=== PATIENT | male | born 1955 | race Caucasian/White ===

== ENCOUNTER 2018-03-24 11:46 | Emergency (ER) | payer MEDICAID ==
[~2018-03-24] VITALS: Ht 165.1 cm; Wt 68.0 kg
[2018-03-24 11:49] VITALS: BP 164/95
--- NOTE | 2018-03-24 11:53 | NUR ---
PATIENT PRESENTS TO ED WITH PAIN AND WART LIKE GROWTHS ON LEFT THUMB AND INDEX FINGER. PT STATES PAIN FEELS LIKE BURNING AND ALSO FEELS LIKE SOMETHING IS INSIDE CONSTRICTING. DENIES N/V/D; OTHERWISE SKIN IS PINK/WARM/DRY; AAOX4 WITH EVEN AND STEADY GAIT; LUNGS CLEAR BL; HR EVEN AND REGULAR; PT DENIES ANY FEVER, CP, SOB, OR COUGH AT THIS TIME; PATIENT STATES PAIN OF 8/10 AT THIS TIME; VSS; PATIENT POSITIONED FOR COMFORT; HOB ELEVATED; BEDRAILS UP X1; BED DOWN. ER MD MADE AWARE OF PT STATUS.
--- NOTE | 2018-03-24 12:34 | NUR ---
Patient being evaluated by physician at bedside.
[2018-03-24 13:10] VITALS: BP 149/89
--- NOTE | 2018-03-24 13:10 | NUR ---
Patient discharged with v/s stable. Written and verbal after care instructions given and explained. Patient alert, oriented and verbalized understanding of instructions. Ambulatory with steady gait. All questions addressed prior to discharge. ID band removed. Patient advised to follow up with PMD. Rx of TRIAMCINOLONE, VALTREX, NORCO, PENICILLIN given. Patient educated on indication of medication including possible reaction and side effects. Opportunity to ask questions provided and answered.
== END 2018-03-24 13:10 | disposition home or self-care (01) ==
LOC: MED 11:46
DX: B00.9 Herpesviral infection, unspecified (principal); K04.7 Periapical abscess without sinus; E11.9 Type 2 diabetes mellitus without complications; I10 Essential (primary) hypertension; Z95.1 Presence of aortocoronary bypass graft
CPT/HCPCS: 99283

== ENCOUNTER 2018-04-08 09:59 | Emergency (ER) | payer MEDICAID ==
[~2018-04-08] VITALS: Ht 162.6 cm; Wt 68.0 kg
[2018-04-08 10:03] VITALS: BP 146/95
== END 2018-04-08 12:02 | disposition home or self-care (01) ==
LOC: MED 09:59
DX: L01.00 Impetigo, unspecified (principal); A49.02 Methicillin resistant Staphylococcus aureus infection, unspecified site; E11.9 Type 2 diabetes mellitus without complications; I10 Essential (primary) hypertension; Z95.1 Presence of aortocoronary bypass graft
CPT/HCPCS: 36415; 87070; 87102; 87205; 87252; 99284

== ENCOUNTER 2018-04-21 20:45 | Emergency (ER) | payer MEDICAID ==
[~2018-04-21] VITALS: Ht 165.1 cm; Wt 67.1 kg
[2018-04-21 20:55] VITALS: BP 146/90
--- NOTE | 2018-04-21 20:57 | NUR ---
TO BED #1 AMBULATORY, REPORT GIVEN TO DONG CALL
--- NOTE | 2018-04-21 21:10 | NUR ---
C/O GENERALIZED RASH STARTING TO RT FLANK YESTERDAY AND IS NOW GENERALIZED. RED PATCHES NOTED GENERALIZED TO BODY. NO RR DISTRESS NOTED.
[2018-04-21] MEDS ORDERED: FAMOTIDINE 20 MG TAB PO ONE (21:20)
[2018-04-21] MEDS ORDERED: methylPREDNISolone SS 125 MG in WATER STERILE 2 ML IM ONE (21:20)
[2018-04-21] MEDS ORDERED: diphenhydrAMINE 50 MG/ML VIAL IM ONE (21:20)
--- NOTE | 2018-04-21 21:45 | NUR ---
PT NO LONGER ITCHING, STATES " FEELS BETTER".
[2018-04-21 22:02] VITALS: BP 174/94
--- NOTE | 2018-04-21 22:04 | NUR ---
Patient discharged with v/s stable. Written and verbal after care instructions given and explained. Patient alert, oriented and verbalized understanding of instructions. Ambulatory with steady gait. All questions addressed prior to discharge. ID band removed. Patient advised to follow up with PMD. Rx of BENADRYL, PREDNISONE, PEPCID given. Patient educated on indication of medication including possible reaction and side effects. Opportunity to ask questions provided and answered.
== END 2018-04-21 22:04 | disposition home or self-care (01) ==
LOC: MED 20:45
DX: L50.9 Urticaria, unspecified (principal); E11.9 Type 2 diabetes mellitus without complications; I10 Essential (primary) hypertension
CPT/HCPCS: 96372; 99284; J1200; J2930

== ENCOUNTER 2018-05-12 18:52 | Emergency (ER) | payer MEDICAID ==
[~2018-05-12] VITALS: Ht 162.6 cm; Wt 68.0 kg
[2018-05-12 18:58] VITALS: BP 171/99
--- NOTE | 2018-05-12 19:02 | NUR ---
PT AMBULATES WITH STEADY GAIT TO BED 12
--- NOTE | 2018-05-12 19:17 | NUR ---
PATIENT PRESENTS TO ED WITH pt c/o of pain in the sciatic/back radiates to the left leg. aggrevated x 2 days due to lifting heavy bags. steady gait. chronic back pain for 8 years. DENIES N/V/D; SKIN IS PINK/WARM/DRY; AAOX4 WITH EVEN AND STEADY GAIT; LUNGS CLEAR BL; HR EVEN AND REGULAR; PT DENIES ANY FEVER, CP, SOB, OR COUGH AT THIS TIME; PATIENT STATES PAIN OF 10/10 AT THIS TIME; VSS; PATIENT POSITIONED FOR COMFORT; HOB ELEVATED; BEDRAILS UP X2; BED DOWN. ER MD MADE AWARE OF PT STATUS.
[2018-05-12] MEDS ORDERED: CYCLOBENZAPRINE 10 MG TAB PO ONE (19:45)
[2018-05-12] MEDS ORDERED: GABAPENTIN 300 MG CAP PO ONE (19:45)
[2018-05-12] MEDS ORDERED: GABAPENTIN 300 MG CAP ONE (20:08)
[2018-05-12 20:29] VITALS: BP 171/99
--- NOTE | 2018-05-12 20:29 | NUR ---
Patient discharged with v/s stable. Written and verbal after care instructions given and explained. Patient alert, oriented and verbalized understanding of instructions. Ambulatory with steady gait. All questions addressed prior to discharge. ID band removed. Patient advised to follow up with PMD. Rx of gabapentin and flexeril were given. Patient educated on indication of medication including possible reaction and side effects. Opportunity to ask questions provided and answered.
--- NOTE | 2018-05-12 20:29 | NUR ---
Note undone in EDM - 05/12/18 at 2125 by [email or web address] Patient discharged with v/s stable. Written and verbal after care instructions given and explained. Patient alert, oriented and verbalized understanding of instructions. Ambulatory with to car. All questions addressed prior to discharge. ID band removed. Patient advised to follow up with PMD. Rx of gabapentin and flexeril were given. Patient educated on indication of medication including possible reaction and side effects. Opportunity to ask questions provided and answered.
== END 2018-05-12 20:29 | disposition home or self-care (01) ==
LOC: MED 18:52
DX: M54.42 Lumbago with sciatica, left side (principal); M54.41 Lumbago with sciatica, right side; I25.10 Atherosclerotic heart disease of native coronary artery without angina pectoris; E11.9 Type 2 diabetes mellitus without complications; I10 Essential (primary) hypertension
CPT/HCPCS: 99283

== ENCOUNTER 2019-06-22 18:58 | Emergency (ER) | payer MEDICAID ==
[~2019-06-22] VITALS: Ht 165.1 cm; Wt 70.5 kg
[2019-06-22 19:15] VITALS: BP 160/85
--- NOTE | 2019-06-22 19:18 | NUR ---
TO LOBBY A/W BED AND XRAY AMBULATORY
--- NOTE | 2019-06-22 19:42 | NUR ---
PT AMBULATED TO BED #11
--- NOTE | 2019-06-22 20:03 | NUR ---
Patient transferred to bed 1 for further care. RN re-evaluating patient at bedside.
[2019-06-22] MEDS ORDERED: DEXAMETHASONE 10 MG/ML VIAL IM ONE (20:10)
--- NOTE | 2019-06-22 20:10 | NUR ---
PT CAME TO ER C/O OF PRODUCTIVE COUGH X 3 WEEKS. NO FEVER OR CHILLS. NO N/V/D. PT IS A CHRONIC SMOKER FOR OVER 50 YEARS. MED HX: VIRAL MENINGITIS, [place] 2010, TRIPLE BYPASS 2011, HIGH CHOLESTEROL AND HTN. SAFETY MEASURES IN PLACE. WAITING FOR ERMD TO EVALUATE PT.
--- NOTE | 2019-06-22 20:41 | NUR ---
Patient discharged with v/s stable. Written and verbal after care instructions given and explained. PT EDUCATED TO REST AND DRINK PLENTY OF FLUIDS. Patient alert, oriented and verbalized understanding of instructions. Ambulatory with steady gait. All questions addressed prior to discharge. ID band removed. Patient advised to follow up with PMD. Rx of PREDNISONE, TESSALON PERLES, AND ALBUTEROL WAS given. Patient educated on indication of medication including possible reaction and side effects. Opportunity to ask questions provided and answered.
[2019-06-22 20:42] VITALS: BP 160/85
== END 2019-06-22 20:41 | disposition home or self-care (01) ==
LOC: MED 18:58
DX: J40 Bronchitis, not specified as acute or chronic (principal); E11.9 Type 2 diabetes mellitus without complications; I10 Essential (primary) hypertension; F17.210 Nicotine dependence, cigarettes, uncomplicated; Z98.890 Other specified postprocedural states; Z71.6 Tobacco abuse counseling
CPT/HCPCS: 71045; 96372; 99283; J1100; Q0092

== ENCOUNTER 2019-11-11 12:41 | Emergency (ER) | payer MEDICAID ==
[~2019-11-11] VITALS: Ht 165.1 cm; Wt 72.6 kg
[2019-11-11 13:08] VITALS: BP 142/82
--- NOTE | 2019-11-11 13:14 | NUR ---
INFLUENZA SWAB COLLECTED
--- NOTE | 2019-11-11 13:19 | NUR ---
SWAB SENT TO LAB.
--- NOTE | 2019-11-11 13:23 | NUR ---
PT AMBULATED TO BED 11
--- NOTE | 2019-11-11 13:47 | NUR ---
64 YEAR OLD MALE COMPLAINS OF HAVING COUGH, HEADACHE, AND CHILLS X 3 DAYS. PATIENT STATES HE HAS A 9/10 HEADACHE THAT FEELS LIKE NEEDLES. PATIENT STATES HE HAS HAD PRODUCTIVE COUGH WITH GREEN SPUTUM. LUNGS CTABL, BREATHING EVEN AND UNLABORED. PATIENT TEMPERATURE 100.7. NEGATIVE KERNIG AND BRUDZINSKI SIGNS. PATIENT ALERT AND ORIENTED, SKIN WARM AND DRY. BED IN LOWEST POSITION, LOCKED, BED RAIL UPX1. KNOWN MEDICAL HISTORY - TRIPLE BYPASS, VIRAL MENINGITIS MEDICATIONS - "HEART MEDICATIONS" ALLERGIES - NKA
[2019-11-11] MEDS ORDERED: IBUPROFEN 600 MG TAB PO ONE (13:55)
--- NOTE | 2019-11-11 14:43 | NUR ---
Dr. Jorge is evaluating the patient at bedside.
[2019-11-11 15:14] VITALS: BP 140/69
--- NOTE | 2019-11-11 15:14 | NUR ---
Patient discharged with v/s stable. Written and verbal after care instructions given and explained. Patient alert, oriented and verbalized understanding of instructions. Ambulatory with steady gait. All questions addressed prior to discharge. ID band removed. Patient advised to follow up with PMD. Rx of CODEINE PHOSPHATE given. Patient educated on indication of medication including possible reaction and side effects. Opportunity to ask questions provided and answered.
== END 2019-11-11 15:14 | disposition home or self-care (01) ==
LOC: MED 12:41
DX: J11.1 Influenza due to unidentified influenza virus with other respiratory manifestations (principal); E11.9 Type 2 diabetes mellitus without complications; I10 Essential (primary) hypertension; F17.210 Nicotine dependence, cigarettes, uncomplicated; E78.00 Pure hypercholesterolemia, unspecified; G89.29 Other chronic pain; Z95.1 Presence of aortocoronary bypass graft
CPT/HCPCS: 87804; 99283